=== PATIENT | male | born 1995 | race American Indian/Alaskan Native ===

== ENCOUNTER 2021-08-15 09:18 | Emergency (ER) | payer SELFPAY ==
[2021-08-15] MEDS ORDERED: SODIUM CHLORIDE 0.9% 1000 ML 1,000 ML IV ONE (09:26)
[2021-08-15] MEDS ORDERED: ZIPRASIDONE MESYLATE 20 MG VIAL IM ONE (09:53)
--- NOTE | 2021-08-15 09:53 | Emergency Department Report ---
<BRYANT REAVES - Last Filed: 08/15/21 23:37> ED Seizure HPI - General Chief Complaint: Seizure Stated Complaint: SEIZURE Time Seen by Provider: 08/15/21 09:26 - Related Data Previous Rx's Medication Instructions Recorded Last Taken Type Divalproex Dr [DepaKOTE DR] 500 mg PO BID #60 tablet 08/15/21 Unknown Rx Allergies Allergy/AdvReac Type Severity Reaction Status Date / Time No Known Allergies Allergy Verified 08/15/21 09:25 ED Past Medical Hx - Medications Home Medications: Home Medications Medication Instructions Recorded Confirmed Last Taken Type Divalproex Dr [DepaKOTE DR] 500 mg PO BID #60 tablet 08/15/21 Unknown Rx ED Course - Reevaluation(s) Reevaluation #3: 08/15/21 17:54 Patient is alert, oriented x3 in no acute distress. Patient stated that he is out of his Depakote for few days. He refused blood work. Patient ready received valproic acid IV. No seizure activity observed since then. Patient also received multiple medication for sedation. Patient given prescription for Depakote and advised to follow-up with his neurologist in the next 2 to 3 days and to return to the ER if he develop any new symptoms. ED Disposition Clinical Impression: Recurrent seizures Disposition: 01 HOME / SELF CARE / HOMELESS Condition: Stable Instructions: Epilepsy Additional Instructions: Take your medication. Drink water. Return for problems. Follow-up with your regular doctor and your neurologist for recheck. Prescriptions: Divalproex Dr [DepaKOTE DR] 500 mg PO BID #60 tablet Referrals: PRIMARY CAREMD [Primary Care Provider] - 3-5 Days JERZY NICK MD [Staff Physician] - 3-5 Days <NASH MAY - Last Filed: 08/18/21 06:26> ED Seizure HPI - General Source: EMS Mode of arrival: Stretcher Limitations: No Limitations - History of Present Illness Initial Comments: Patient was brought in by EMS for a seizure. Family provided history to EMS. Patient is nonverbal and postictal and cannot provide any history. Patient has a history of seizures. He had been noncompliant according to family. He is supposed to be taking Depakote. Patient had 2 seizures prior to EMS arrival. They had 2 seizures with EMS arrival and one seizure prior to arrival here. He had been given Ativan 2 mg IV. Patient was not seizing but was agitated. He does have history of traumatic brain injury. Patient has been postictal for EMS. There was no known trauma according to EMS. There was no known fever or chills. Patient had no known infection. ED Review of Systems ROS: Stated complaint: SEIZURE Other details as noted in HPI Comment: Unobtainable due to pts medical conditions (Postictal state) ED Past Medical Hx - Past Medical History Hx Seizures: Yes Additional medical history: Obtained by record review and EMS - Surgical History Additional Surgical History: Cannot be obtained for the patient secondary to postictal state - Family History Family history: other (Cannot be obtained from the patient secondary to postictal state) ED Physical Exam - General Limitations: Altered Mental Status (Postictal state), Other (Pulse ox noted and normal) General appearance: postictal, other (Confused and agitated) - Head Head exam: Present: atraumatic, normocephalic - Eye Eye exam: Present: normal appearance, EOMI. Absent: scleral icterus - ENT ENT exam: Present: mucous membranes moist, normal external ear exam - Neck Neck exam: Present: normal inspection, other (Trachea midline) - Respiratory Respiratory exam: Present: normal lung sounds bilaterally. Absent: respiratory distress - Cardiovascular Cardiovascular Exam: Present: normal rhythm, tachycardia - GI/Abdominal GI/Abdominal exam: Present: soft. Absent: distended - Extremities Exam Extremities exam: Present: normal capillary refill. Absent: pedal edema - Back Exam Back exam: Present: normal inspection - Neurological Exam Neurological exam: Present: other (Postictal. He is moving all 4 extremities equally and volitionally. He does respond to noxious stimuli.) - Skin Skin exam: Present: warm, dry ED Course Vital Signs 08/15/21 08/15/21 08/15/21 09:24 09:34 09:46 Temperature 98.9 F Pulse Rate 110 H Respiratory 18 Rate Blood Pressure 117/50 Blood Pressure 160/74 [Right] O2 Sat by Pulse 98 80 L Oximetry 08/15/21 08/15/21 08/15/21 10:17 12:10 12:17 Temperature Pulse Rate 89 88 Respiratory 19 18 Rate Blood Pressure 145/66 Blood Pressure 117/50 145/66 [Right] O2 Sat by Pulse 98 98 Oximetry 08/15/21 08/15/21 08/15/21 13:00 15:30 15:39 Temperature Pulse Rate 90 Respiratory 18 Rate Blood Pressure 143/68 Blood Pressure 141/73 [Right] O2 Sat by Pulse 100 100 Oximetry 08/15/21 08/15/21 08/15/21 15:45 16:00 16:27 Temperature Pulse Rate Respiratory Rate Blood Pressure 141/73 126/67 132/60 Blood Pressure [Right] O2 Sat by Pulse 100 44 L Oximetry 08/15/21 08/15/21 08/15/21 16:42 16:57 17:13 Temperature Pulse Rate Respiratory Rate Blood Pressure 148/72 132/66 130/67 Blood Pressure [Right] O2 Sat by Pulse Oximetry 08/15/21 08/15/21 17:27 18:13 Temperature 97.5 F L Pulse Rate 91 H Respiratory 18 Rate Blood Pressure 128/64 Blood Pressure 160/90 [Right] O2 Sat by Pulse Oximetry - Reevaluation(s) Reevaluation #1: 08/15/21 11:53 EMS have been met upon arrival. Patient required physical restraint as well as chemical sedation. He had been given Ativan prior to arrival. There is no evidence of seizure activity. He seemed to be postictal. At this time, patient required further sedation. He has an IV in place. Versed IV was ordered. Labs are still pending. Reevaluation #2: 08/15/21 15:05 Labs are pending. I suspect that once labs have resulted, patient will likely be stable to be discharged. He seems to be more calm at this time. Critical Care Time: No Critical care attestation.: If time is entered above; I have spent that time in minutes in the direct care of this critically ill patient, excluding procedure time. ED Disposition Is pt being admited?: No
[2021-08-15] MEDS ORDERED: WATER FOR INJ Sterile (PF) 10 ML ONE (09:59)
[2021-08-15] MEDS ORDERED: VALPROATE SODIUM 500 MG in SODIUM CHLORIDE 0.9% 100 ML IV ONE (10:00)
[2021-08-15] MEDS ORDERED: MIDAZOLAM 5 MG/5 ML INJ MDV IV NR (12:00)
[2021-08-15] MEDS ORDERED: KETAMINE/STERILE WATER 50 MG/ML SYRINGE IM ONE (12:36)
[2021-08-15] MEDS ORDERED: KETAMINE 500 MG/5 ML VIAL MDV IM ONE (14:00)
[2021-08-15 18:16] VITALS: BP 160/90
== END 2021-08-15 19:22 | disposition home or self-care (01) ==
LOC: ED 09:18
DX: G40.909 Epilepsy, unspecified, not intractable, without status epilepticus (principal)
CPT/HCPCS: 96365; 96372; 96375; 99283; J2250; J3486; J7030; J3490; Q0162